=== PATIENT | male | born 1985 | race Caucasian/White ===

== ENCOUNTER 2024-05-29 06:52 | Day surgery (SDC) | payer BC ==
[~2024-05-29 06:52] MED LIST: Acetaminophen 1,000 MG in Premix Bag 1 BAG IV SCH; ceFAZolin 2 GM in Sodium Chloride 0.9% 50 ML IV ONE
[2024-05-29] MEDS: Pregabalin 75 MG Cap PO SCH (07:10)
[2024-05-29] MEDS ORDERED: Bupivacaine 0.5% 30 ML SDV ONE (07:10)
[2024-05-29] MEDS: Lactated Ringers 1,000 ML IV SCH (07:26)
[2024-05-29] MEDS ORDERED: Ketamine HCL/NACL, ISO-OSM 50 MG/5 ML Syringe ONE (07:31)
[2024-05-29] MEDS ORDERED: Ropivacaine 0.5% 5 MG/ML 30 ML SDV ONE (07:31)
[2024-05-29] MEDS ORDERED: fentaNYL 250 MCG/5 ML SDV ONE (07:31)
[2024-05-29] MEDS ORDERED: Rocuronium Bromide 50 MG/5 ML Syringe ONE (07:31)
[2024-05-29] MEDS ORDERED: Morphine 10 MG/ML SDV ONE (07:31)
[2024-05-29] MEDS ORDERED: Propofol 200 MG/20 ML SDV ONE (07:31)
[2024-05-29] MEDS ORDERED: dexmedeTOMIDine HCl 200 MCG/2 ML SDV ONE (07:35)
[2024-05-29] MEDS ORDERED: Water For Injection, Sterile 20 ML ONE (07:36)
[2024-05-29] MEDS ORDERED: Metoclopramide 10 MG/2 ML SDV IVPUSH PRN (08:02)
[2024-05-29] MEDS ORDERED: Phenylephrine HCl In 0.9% NaCl 1 MG/10 ML Syringe IVPUSH PRN (08:02)
[2024-05-29] MEDS ORDERED: Lidocaine 2% 11 ML Jelly Filled Syringe ONE (08:02)
[2024-05-29] MEDS ORDERED: HYDROmorphone 1 MG/ML Syringe IVPUSH PRN (08:02)
[2024-05-29] MEDS ORDERED: fentaNYL 50 MCG/ML SDV IVPUSH PRN (08:02)
[2024-05-29] MEDS ORDERED: Albuterol 0.083% 2.5 MG/3 ML Neb Soln NEB PRN (08:02)
[2024-05-29] MEDS ORDERED: Morphine 2 MG/ML SYRINGE IVPUSH PRN (08:02)
[2024-05-29] MEDS ORDERED: Ondansetron 4 MG/2 ML SDV IVPUSH PRN (08:02)
[2024-05-29] MEDS ORDERED: Naloxone 0.4 MG/ML SDV IVPUSH PRN (08:02)
[2024-05-29] MEDS ORDERED: Sugammadex Sodium 200 MG/2 ML VIAL IV ONE (09:24)
[2024-05-29] MEDS ORDERED: Dexamethasone 4 MG/ML 5 ML MDV ONE (09:24)
[2024-05-29] MEDS ORDERED: Ketorolac 30 MG/ML SDV ONE (09:24)
[2024-05-29] MEDS ORDERED: Ondansetron 4 MG/2 ML SDV ONE (09:24)
[2024-05-29] MEDS ORDERED: Phenylephrine HCl In 0.9% NaCl 1 MG/10 ML Syringe ONE (09:24)
[2024-05-29] MEDS ORDERED: ePHEDrine 50 MG/ML SDV ONE (09:49)
[2024-05-29] MEDS ORDERED: ceFAZolin 2 GM Vial ONE (11:05)
== END 2024-05-29 11:00 | disposition home or self-care (01) ==
LOC: MW.SDS 06:52
PROVIDERS: ATTEND Surgery
DX: K40.90 Unilateral inguinal hernia, without obstruction or gangrene, not specified as recurrent (principal); D17.6 Benign lipomatous neoplasm of spermatic cord
CPT/HCPCS: 49650; A9270; C1781; J0131; J0665; J0690; J1100; J1885; J2270; J2405; J2704; J2795; J3010; J3490; J7120; 00830; 64488; J2371